=== PATIENT | female | born 1970 | race Caucasian/White ===

== ENCOUNTER 2022-06-09 17:53 | Emergency (ER) | payer OTHER ==
[2022-06-09] MEDS: Ondansetron 4 MG Tab.DIS PO ONE (18:28)
[2022-06-09] MEDS: SUMAtriptan 6 MG/0.5 ML SDV SUBCUT ONE (18:28)
[2022-06-09] MEDS ORDERED: Ondansetron 4 MG Tab.DIS ONE (19:36)
[2022-06-11] MEDS: Ondansetron 4 MG Tab.DIS ONE (08:10)
[2022-06-11] MEDS: Ketorolac 60 MG/2 ML SDV IM ONE (08:10)
== END 2022-06-09 19:30 | disposition home or self-care (01) ==
LOC: LB.ED 17:53
DX: G44.209 Tension-type headache, unspecified, not intractable (principal)
CPT/HCPCS: 96372; 99283; J3030; Q0162